=== PATIENT | male | born 1940 | race Caucasian/White ===

== ENCOUNTER 2023-04-30 08:00 | Outpatient (CLI) | payer MEDICARE ==
--- NOTE | 2023-04-30 16:54 | XRAY Report ---
PROCEDURE: Shoulder 3 View RT INDICATIONS: RIGHT SHOULDER PAIN TECHNIQUE: 3 views of the shoulder were acquired. COMPARISON: None. FINDINGS: Bones: No fractures or dislocations. No suspicious bony lesions. Visualized ribs appear intact. Periarticular osteophyte formation at the acromioclavicular and glenohumeral joints. Soft tissues: No suspicious soft tissue calcifications. IMPRESSION: Osteoarthritis. No acute fracture. No osseous lesion. If symptoms and/or clinical suspici on for pathology continue, further assessment with repeat plain films, or advanced imaging (e.g., CT, MRI, or bone scan) is recommended for further assessment. Reviewed by: Homar Sim MD on 04/30/2023 4:52 PM PDT Approved by: Homar Sim MD on 04/30/2023 4:52 PM PDT Station ID: [id number]
== END 2023-04-30 23:59 | disposition home or self-care (01) ==
LOC: DI.S 08:00
PROVIDERS: ATTEND Physician Assistant
DX: M19.011 Primary osteoarthritis, right shoulder (principal)